=== PATIENT | male | born 1970 | race Caucasian/White ===

== ENCOUNTER → 2020-11-06 00:13 | Outpatient (CLI) | payer OTHER, SELFPAY ==
[2020-11-06 17:44] LABS: SARS-CoV-2 RNA PCR Negative
== END ==
PROVIDERS: PCP Family Medicine; Visit Provider Internal Medicine Gastroenterology
DX: Z01.812 Encounter for preprocedural laboratory examination (principal); Z20.822 Contact with and (suspected) exposure to COVID-19
CPT/HCPCS: C9803; U0003; U0005

== ENCOUNTER 2020-11-09 00:38 | Day surgery (SDC) | payer OTHER, SELFPAY ==
[2020-10-26 13:20] VITALS: BMI 33.2
[2020-11-09 06:46] VITALS: BP 129/88; PULSE 84; RESP 18; TEMP 36.2; O2SAT 97; BMI 34.0
[2020-11-09] MEDS: LACTATED RINGERS 1,000 ML 150 ML IV CONT (06:53)
--- NOTE | 2020-11-09 07:19 | WPDANESEPPF ---
Anes - Initial Pre Proc Eval Procedure: Operation Date: 11/09/20 08:00 Proposed Procedures p Esophagogastroduodenoscopy - Arturo Duval MD Date/Time: 11/09/20 07:19 Surgeon: Arturo Duval MD Pre Op Diagnosis: Dysphagia Patient Data Age: 49 Gender: M Height: 5 ft 10 in Weight: 107.5 kg Last Vital Signs Temp 97.2 F L 11/09/20 06:46 Pulse 84 11/09/20 06:46 Resp 18 11/09/20 06:46 BP 129/88 11/09/20 06:46 Pulse Ox 97 11/09/20 06:46 Allergies Allergy/AdvReac Type Severity Reaction Status Date / Time No Known Allergies Allergy Verified 11/09/20 06:43 Home Medications Medication Instructions Recorded Confirmed Type atorvastatin [Lipitor] 10 mg PO DAILY 10/26/20 10/26/20 History lisinopril [Zestril] 10 mg PO DAILY 10/26/20 10/26/20 History rizatriptan [Maxalt] 10 mg PO DAILY 10/26/20 10/26/20 History verapamil 120 mg PO DAILY 10/26/20 10/26/20 History zolpidem [Ambien] 10 mg PO DAILY 10/26/20 10/26/20 History esomeprazole magnesium 20 mg PO DAILY 11/09/20 11/09/20 History Patient hx anesthesia problems: none Family hx anesthesia problems: none PMFSH Past Medical History Medical History (Updated 11/09/20 @ 07:18 by Bola Regalado MD) Hyperlipidemia Hypertension Migraine Social History Social History Substance use type: does not use Living arrangements: with family Gender identity (if verbalized by the patient): Male Sexual Orientation (if Verbalized by the Patient): Straight or Heterosexual Spiritual care concerns: No Anes - Eval Final PreProcedure Day of Procedure 11/09/20 07:19 Patient weight: obese Heart: regular rate and rhythm Lungs: clear to auscultation Airway: Mallampati scale class II Neurological: alert and oriented Last oral intake: >/= 8 hours ASA classification: III Emergent: no Anesthetic plan: proceed Anesthesia type and monitoring: general GIVS and standard monitoring Informed Consent: The patient's anesthetic plan and its attendant risks and benefits were discussed with the patient/family/POA. Questions were solicited and answers provided to the satisfaction of the patient/family/POA.
--- NOTE | 2020-11-09 07:32 | PM.HPGS ---
History of Present Illness History of Present Illness Consent: Risks, benefits, and alternatives have been discussed and questions answered. Patient agrees to proceed with procedure. Chief complaint: Dysphagia Narrative: Bo Wade is a 49 year old male with gerd better with ppi but also dysphagia, never had egd Review of Systems Constitutional: Constitutional: Denies headache(s) and Denies weakness Eyes: Eyes: Denies blurry vision ENT: Reports Normal hearing present, Denies headache(s) and Denies neck pain Cardiovascular: Cardiovascular: Denies chest pain and Denies dyspnea Respiratory: Respiratory: Denies dyspnea Gastrointestinal: Gastrointestinal: Reports no additional gastrointestinal complaints Genitourinary: Genitourinary: Denies dysuria Musculoskeletal: Musculoskeletal: Denies neck pain Integumentary/Breasts: Skin/Breast: Denies dry skin Neurologic: Reports Normal hearing present, Denies headache(s) and Denies weakness Psychiatric: Psychiatric: Denies anxiety Endocrine: Endocrine: Denies change in body appearance Hematologic/Lymphatic: Hematologic/Lymphatic: Denies easy bleeding Allergic/Immunologic: Allergic/Immunologic: Denies urticaria PMF Past Medical History Medical History (Updated 11/09/20 @ 07:32 by Arturo Duval MD) Dysphagia GERD (gastroesophageal reflux disease) Hyperlipidemia Hypertension Migraine Social History Social History Substance use type: does not use Living arrangements: with family Gender identity (if verbalized by the patient): Male Sexual Orientation (if Verbalized by the Patient): Straight or Heterosexual Spiritual care concerns: No Meds Home Medications and Allergies Home Medications Medication Instructions Recorded Confirmed Type atorvastatin [Lipitor] 10 mg PO DAILY 10/26/20 10/26/20 History lisinopril [Zestril] 10 mg PO DAILY 10/26/20 10/26/20 History rizatriptan [Maxalt] 10 mg PO DAILY 10/26/20 10/26/20 History verapamil 120 mg PO DAILY 10/26/20 10/26/20 History zolpidem [Ambien] 10 mg PO DAILY 10/26/20 10/26/20 History esomeprazole magnesium 20 mg PO DAILY 11/09/20 11/09/20 History Allergies Allergy/AdvReac Type Severity Reaction Status Date / Time No Known Allergies Allergy Verified 11/09/20 06:43 Vital Signs Vital Signs - 24 hr 11/09/20 06:46 Temperature 97.2 F L Pulse Rate 84 Respiratory Rate 18 Blood Pressure 129/88 Pulse Oximetry 97 Exam Const: General: comfortable and no acute distress HENMT: General nose exam: Normal nares present Eyes: General: appearance normal, both eyes and all related structures Neck: Neck: no JVD Resp: Auscultation: clear to auscultation bilaterally Cardio: Rate: regular rate Rhythm: regular rhythm GI: Inspection: non-distended GI Palp: Yes Soft to palpation Skin: General skin exam: normal color Neuro: General: gait normal Speech: normal speech Extrem: General: normal to inspection Psych: Mental Status: mental status grossly normal Assessment and Plan Assessment and plan (1) GERD (gastroesophageal reflux disease): Code(s): K21.9 - Gastro-esophageal reflux disease without esophagitis Status: Acute Assessment and Plan: egd with bx, on ppi otc (2) Dysphagia: Code(s): R13.10 - Dysphagia, unspecified Status: Acute
[2020-11-09 07:43] VITALS: BP 125/77; PULSE 79; RESP 93; O2SAT 93
[2020-11-09 07:53] VITALS: BP 117/79; PULSE 81; RESP 96; O2SAT 96
[2020-11-09 08:03] VITALS: BP 132/85; PULSE 80; RESP 18; O2SAT 97
== END 2020-11-09 08:12 | disposition home or self-care (01) ==
PROVIDERS: PCP Family Medicine; Visit Provider Internal Medicine Gastroenterology
PROC: 0DJ08ZZ Inspection of Upper Intestinal Tract, Via Natural or Artificial Opening Endoscopic (ICD-10-PCS; CPT 43235; principal; 2020-11-09 08:00)
DX: R13.10 Dysphagia, unspecified (principal); K21.9 Gastro-esophageal reflux disease without esophagitis; I10 Essential (primary) hypertension; E78.5 Hyperlipidemia, unspecified; E66.9 Obesity, unspecified; Z68.34 Body mass index [BMI] 34.0-34.9, adult
CPT/HCPCS: 43239; 88305; C9803; J2704; J7120; U0003; U0005

== ENCOUNTER 2021-05-18 12:53 | Outpatient (RCR) | payer OTHER, SELFPAY ==
[2021-05-18] MEDS: diphenhydrAMINE HCl CAP 25 MG CAPSULE PO (14:06)
[2021-05-18] MEDS: ACETAMINOPHEN 325 MG TABLET 650 MG PO (14:06)
[2021-05-18] MEDS: FAMOTIDINE 20 MG TABLET PO (14:06)
[2021-05-18 14:26] VITALS: BP 127/88; PULSE 95; RESP 18; TEMP 37.2; O2SAT 97
--- NOTE | 2021-05-18 15:01 | PC.NURSE ---
Patient received COVID vaccines: [place] 10/13/20, 11/04/20
[2021-05-18 15:49] VITALS: BP 130/85; PULSE 93; RESP 18; TEMP 37; O2SAT 97
--- NOTE | 2021-05-19 10:13 | PC.NURSE ---
Called patient to follow-up regarding COVID antibody infusion yesterday. Patient states they are feeling well today and denies any side effects at this time.
== END 2021-05-18 16:24 | disposition home or self-care (01) ==
LOC: AMCINF 12:53
PROVIDERS: PCP Family Medicine; Referring Provider Family Medicine; Visit Provider Internal Medicine Hematology & Oncology
DX: Z23 Encounter for immunization (principal); U07.1 COVID-19
CPT/HCPCS: A9270; J7050; M0243; Q0244

== ENCOUNTER 2022-03-15 04:09 | Emergency (ER) | payer OTHER, SELFPAY ==
--- NOTE | ~2022-03-15 | CT_ITS ---
EXAMINATION: CT brain wo con DATE: 03/15/2022 06:00 INDICATION: New headache. TECHNIQUE: Computed tomography (CT) of the head was performed without intravenous contrast. The mA wa s adjusted according to patient size. Iterative reconstruction technique was employed. The dose-lengt h product was 605.33 mGy-cm. COMPARISON: Head CT 03/19/2019 FINDINGS: There is no intracranial hemorrhage, acute infarction, or abnormal intracranial mass lesion . The ventricles are normal in size. There is mild mucosal thickening in the paranasal sinuses. The o rbits are normal. The mastoid air cells are normal. IMPRESSION: 1. Normal brain. Reviewed, dictated and finalized at location A. IMPRESSION: 1. Normal brain.
[2022-03-15 04:12] VITALS: BP 140/104; PULSE 64; RESP 18; TEMP 36.6; O2SAT 98
--- NOTE | 2022-03-15 05:45 | ED.HA ---
HPI - Headache General Chief Complaint: Headache Stated Complaint: migraine x few days, nausea Time Seen by Provider: 03/15/22 05:31 History of Present Illness HPI Narrative: This is a 51-year-old male with past medical history of hypertension, migraines, who presents the emergency department with headache since 2 days ago. He states normally his migraines are pressure-like, over the right and right scalp, and improved with home medications. This headache is described as occipital, pressure-like, with sudden onset at 8 out of 10. He denies associated weakness/numbness, loss of vision, loss of hearing or vertigo. He states despite trying home medications the headache has persisted, [facility] He denies other fevers or chills or vomiting. Related Data Home Medications Medication Instructions Recorded Confirmed atorvastatin 10 mg tablet (Lipitor) 10 mg PO DAILY 10/26/20 05/18/21 lisinopril 10 mg tablet (Zestril) 10 mg PO DAILY 10/26/20 05/18/21 rizatriptan 10 mg tablet (Maxalt) 10 mg PO DAILY 10/26/20 05/18/21 verapamil 120 mg tablet,extended 120 mg PO DAILY 10/26/20 05/18/21 release esomeprazole magnesium 20 mg 20 mg PO DAILY 11/09/20 05/18/21 tablet,delayed release zolmitriptan 5 mg tablet mg 03/15/22 Allergies Allergy/AdvReac Type Severity Reaction Status Date / Time No Known Allergies Allergy Verified 03/15/22 04:16 Review of Systems Review of Systems: CONSTITUTIONAL: Denies fever, chills, or sweats. EYES: Denies visual changes, redness, or discharge. ENT: Denies rhinorrhea, congestion, sore throat, or otalgia. CARDIOVASCULAR: Denies chest pain, palpitations, or edema. RESPIRATORY: Denies cough or dyspnea. GASTROINTESTINAL: intermittent nausea, Denies abdominal pain, vomiting, or diarrhea. GENITOURINARY: Denies dysuria or hematuria. SKIN: Denies rash or itching. MUSCULOSKELETAL: Denies back pain, joint pain, or myalgia. NEUROLOGIC: headache different from prior migraines, Denies numbness, dizziness, or weakness. PSYCHIATRIC: Denies anxiety or depression. [facility] Past Medical History Medical History (Updated 03/15/22 @ 07:38 by Chad Sargent MD) Dysphagia GERD (gastroesophageal reflux disease) Hyperlipidemia Hypertension Migraine Social History Social History Smoking status: Never smoker Substance use type: does not use Gender identity (if verbalized by the patient): Male Sexual Orientation (if Verbalized by the Patient): Straight or Heterosexual Spiritual care concerns: No Exam Narrative: GENERAL: Well-appearing, well-nourished, and in no acute distress. Appears uncomfortable HEAD: Normocephalic, atraumatic. EYES: PERRLA and EOMI. no noted nystagmus ENT: Nares clear, no rhinorrhea or epistaxis. Mucous membranes moist. Oropharynx without tonsillar hypertrophy exudate or other lesions. NECK: Supple. No adenopathy or masses. No carotid bruits or JVD. Head impulse test negative CHEST: Clear to auscultation. No respiratory distress. No wheezes rales or rhonchi HEART: Regular rate and rhythm. No murmur heard. Normal peripheral pulses. ABDOMEN: Soft, nontender, nondistended, normal active bowel sounds. EXTREMITIES: Normal range of motion. No edema. SKIN: Warm, dry, no rash. NEURO: No focal deficits. Alert and oriented x3. Strength out of 5 in all extremities, sensation intact in all extremities, cranial nerves II through XII intact. No noted ataxia, gait normal PSYCH: Normal mood and affect. Course Course Emergency Course: 06:27 - CT head negative for acute intracranial abnormality and is unchanged from March 2019. Incidentally, the patient states he was scratched by a piece of rebar approximately 1 week ago. He does not know when his last tetanus vaccination was given. We will repeat here 07:37 - Reassessed. The patient states he is feeling better. Discussed return emergency precautions including signs/symptoms of intracranial hemorrhage and focal
--- NOTE | 2022-03-15 06:18 | PC.NURSE ---
This RN attempted x2 for IV access. NO success. 2nd RN to try
[2022-03-15] MEDS: PROCHLORPERAZINE EDISYLATE 10 MG/2 ML VIAL IV PUSH (06:39)
[2022-03-15] MEDS: SODIUM CHLORIDE 0.9% IV 1,000 ML 999 ML IV CONT (06:39)
[2022-03-15] MEDS: diphenhydrAMINE HCl INJ 50 MG/ML VIAL 25 MG IV PUSH (06:41)
[2022-03-15 06:58] VITALS: BP 151/100; PULSE 81; RESP 16; O2SAT 98
[2022-03-15 08:09] VITALS: BP 142/87; PULSE 80; RESP 20; O2SAT 98
[2022-03-15] MEDS: TETANUS,DIPHTHERIA,AC PERTUSSIS ADULT (0.5 ML) BOOSTRIX IM (08:10)
== END 2022-03-15 08:16 | disposition home or self-care (01) ==
PROVIDERS: Emergency Provider Preventive Medicine Aerospace Medicine; PCP Family Medicine
DX: G43.909 Migraine, unspecified, not intractable, without status migrainosus (principal); T14.8XXA Other injury of unspecified body region, initial encounter; Z23 Encounter for immunization; K21.9 Gastro-esophageal reflux disease without esophagitis; E78.5 Hyperlipidemia, unspecified; I10 Essential (primary) hypertension; W26.8XXA Contact with other sharp object(s), not elsewhere classified, initial encounter
CPT/HCPCS: 70450; 90471; 90715; 96361; 96365; 96375; 99284; J0131; J0780; J1200; J7030

== ENCOUNTER 2023-12-04 15:50 | Outpatient (CLI) | payer OTHER, SELFPAY ==
--- NOTE | ~2023-12-04 | XR_ITS ---
XR wrist RT 2V 12/04/2023 16:40 Indication: Joint pain Procedure: 2 views right breast Comparison: No prior studies for comparison. Findings: There is anatomic alignment. There is mild osteoarthritis of the first MCP joint. No fractu re, subluxation or dislocation. Lisfranc joint intact. No focal soft tissue abnormality. Normal home office claims examiner alization. No foreign bodies. Impression: 1: No significant bone or joint abnormality. Reviewed, dictated and finalized at location B. Impression: 1: No significant bone or joint abnormality.
--- NOTE | ~2023-12-04 | XR_ITS ---
XR foot RT 2V, XR ankle RT 2V 12/04/2023 16:40 Indication: Joint pain Procedure: 2 views right foot and 2 views right ankle Comparison: No prior studies for comparison. Findings: There is anatomic alignment. No fracture, subluxation or dislocation. Lisfranc joint intact . No focal soft tissue abnormality. Normal mineralization. No foreign bodies. Impression: 1: No significant bone or joint abnormality. Reviewed, dictated and finalized at location B. Impression: 1: No significant bone or joint abnormality. Impression: 1: No significant bone or joint abnormality.
--- NOTE | ~2023-12-04 | XR_ITS ---
XR hand LT 2V 12/04/2023 16:40 Indication: Left hand pain Procedure: 2 views left hand Comparison: No prior studies for comparison. Findings: There is mild polyarticular osteoarthritis of the interphalangeal joints and first MCP join t. No fracture or traumatic malalignment. No focal soft tissue abnormality. No foreign bodies. Impression: 1: Mild polyarticular osteoarthritis. Reviewed, dictated and finalized at location B. Impression: 1: Mild polyarticular osteoarthritis.
--- NOTE | ~2023-12-04 | XR_ITS ---
XR wrist LT 2V 12/04/2023 16:40 Indication: Joint pain Procedure: 2 views left wrist Comparison: No prior studies for comparison. Findings: There is anatomic alignment. No fracture, subluxation or dislocation. Lisfranc joint intact . No focal soft tissue abnormality. Normal mineralization. No foreign bodies. Impression: 1: No significant bone or joint abnormality. Reviewed, dictated and finalized at location B. Impression: 1: No significant bone or joint abnormality.
--- NOTE | ~2023-12-04 | XR_ITS ---
XR foot LT 2V 12/04/2023 16:40 Indication: Joint pain Procedure: 2 views left foot Comparison: No prior studies for comparison. Findings: There is anatomic alignment. No fracture, subluxation or dislocation. Lisfranc joint intact . No focal soft tissue abnormality. Normal mineralization. No foreign bodies. Impression: 1: No significant bone or joint abnormality. Reviewed, dictated and finalized at location B. Impression: 1: No significant bone or joint abnormality.
--- NOTE | ~2023-12-04 | XR_ITS ---
XR hand RT 2V 12/04/2023 16:40 Indication: Joint pain Procedure: 2 views right hand Comparison: No prior studies for comparison. Findings: Mild polyarticular osteoarthritis of the interphalangeal joints and the first MCP joint. No fracture, subluxation or dislocation. No focal soft tissue abnormality. No foreign bodies. Impression: 1: Mild polyarticular osteoarthritis. Reviewed, dictated and finalized at location B. Impression: 1: Mild polyarticular osteoarthritis.
--- NOTE | ~2023-12-04 | XR_ITS ---
XR ankle LT 2V 12/04/2023 16:40 INDICATION: Left ankle pain PROCEDURE: 4 views left ankle COMPARISON: No prior studies for comparison. FINDINGS: Fracture, dislocation or subluxation is not identified. The soft tissues appear within norm al limits. No foreign bodies are identified. IMPRESSION: 1: NO ACUTE BONE OR JOINT ABNORMALITY IDENTIFIED. Reviewed, dictated and finalized at location B.
== END 2023-12-04 15:51 ==
PROVIDERS: PCP Internal Medicine; Visit Provider Internal Medicine
DX: M19.042 Primary osteoarthritis, left hand (principal); M19.041 Primary osteoarthritis, right hand; R53.81 Other malaise
CPT/HCPCS: 73100; 73120; 73600; 73620

== ENCOUNTER 2024-01-10 09:06 | Outpatient (NON) | payer OTHER, SELFPAY | END 2024-01-10 09:07 | disposition home or self-care (01) | LOC: ANHLAB 01-11 09:08 | PROVIDERS: PCP Family Medicine; Visit Provider Internal Medicine Gastroenterology | DX: K63.5 Polyp of colon (principal); K62.1 Rectal polyp; Z86.010 Personal history of colon polyps | CPT/HCPCS: 88305 ==

== ENCOUNTER 2024-01-10 10:05 | Day surgery (SDC) | payer OTHER, SELFPAY ==
[2023-12-27 10:36] VITALS: BMI 33.0
[2023-12-27 14:15] VITALS: BMI 32.5
--- NOTE | 2024-01-09 14:09 | P.PNAN_ITS ---
Anes - Initial Pre Proc Eval Procedure: Operation Date: 01/10/24 12:30 Proposed Procedures p Diagnostic Colonoscopy - Ronal Roberson MD Date/Time: 01/09/24 14:09 Surgeon: Ronal Roberson MD Pre Op Diagnosis: History of Colon Polyps Patient Data Age: 53 Gender: M Height: 1.75 m Weight: 100 kg Allergies Allergy/AdvReac Type Severity Reaction Status Date / Time No Known Allergies Allergy Verified 01/10/24 11:23 Home Medications Medication Instructions Recorded Confirmed Type zolmitriptan 5 mg tablet See Rx Instructions .Route 10/31/23 01/10/24 Rx .COMPLEX #3 tabs atorvastatin 10 mg tablet (Lipitor) 10 mg PO DAILY #90 tabs 12/25/23 01/10/24 Rx esomeprazole magnesium 20 mg 20 mg PO DAILY #90 tabs 12/25/23 01/10/24 Rx tablet,delayed release finasteride 5 mg tablet 5 mg PO DAILY 12/25/23 01/10/24 History lisinopril 10 mg tablet (Zestril) 10 mg PO DAILY #90 tabs 12/25/23 01/10/24 Rx testosterone cypionate 100 mg/mL 50 mg IM .twice a week 12/25/23 01/10/24 History intramuscular oil (Depo-Testosterone) verapamil 120 mg tablet,extended 120 mg PO DAILY #90 tabs 12/25/23 01/10/24 Rx release Patient hx anesthesia problems: none Family hx anesthesia problems: none Results Review: All pre-operative results and documents have been reviewed as part of the pre- operative evaluation. [facility] Past Medical History Medical History Dysphagia Episodic cluster headache, not intractable GERD (gastroesophageal reflux disease) Hyperlipidemia Hypertension Migraine Personal history of colonic polyps Prediabetes Social History Social History (Updated 12/25/23 @ 13:53 by Amanda Villela MA) Smoking status: Never smoker Alcohol intake: current Alcohol use details: occasional Substance use type: does not use Do You Feel Safe in your Home?: Yes Lack of Transportation: No Lack of Food: Never True Current Housing: I Have Housing Concerned About Future Housing: No Difficulty Paying Gas/Electric Bills: No Difficulty Paying for Meds: No Currently Unemployed: No Education: High School Diploma/GED Difficulty w/ Childcare or Family Care: No Living arrangements: with family Occupation/Education: occupation Gender identity (if verbalized by the patient): Male Sexual Orientation (if Verbalized by the Patient): Straight or Heterosexual Spiritual care concerns: No Anes - Eval Final PreProcedure Day of Procedure 01/09/24 14:09 Patient weight: obese Heart: regular rate and rhythm Lungs: clear to auscultation Airway: Mallampati scale class II Neurological: alert and oriented Last oral intake: >/= 8 hours ASA classification: III Emergent: no Anesthetic plan: proceed Anesthesia type and monitoring: general GIVS and standard monitoring Results Review: All pre-operative results and documents have been reviewed as part of the pre- operative evaluation. Informed Consent: The patient's anesthetic plan and its attendant risks and benefits were discussed with the patient/family/POA. Questions were solicited and answers provided to the satisfaction of the patient/family/POA.
[2024-01-10 11:29] VITALS: BP 125/92; PULSE 84; RESP 18; TEMP 36.8; O2SAT 97
[2024-01-10 11:31] VITALS: BMI 32.1
[2024-01-10] MEDS: LACTATED RINGERS 1,000 ML 150 ML IV CONT (11:41)
--- NOTE | 2024-01-10 11:52 | PM.HPGS ---
History of Present Illness History of Present Illness Consent: Risks, benefits, and alternatives have been discussed and questions answered. Patient agrees to proceed with procedure. Chief complaint: History of Colon Polyps Narrative: Bo Wade is a 53 year old male presents for screening colonoscopy. Patient's current weight appetite and bowel movements are normal. He denies abdominal pain. Patient has had no bleeding. Family history noncontributory. Patient does have a prior history of colon polyps in the past. There is no family history of colon polyps. Review of Systems Review of Systems: All systems reviewed & are unremarkable except as noted in HPI and below PMFSH Past Medical History Medical History Dysphagia Episodic cluster headache, not intractable GERD (gastroesophageal reflux disease) Hyperlipidemia Hypertension Migraine Personal history of colonic polyps Prediabetes Social History Social History (Updated 12/25/23 @ 13:53 by Amanda Villela MA) Smoking status: Never smoker Alcohol intake: current Alcohol use details: occasional Substance use type: does not use Do You Feel Safe in your Home?: Yes Lack of Transportation: No Lack of Food: Never True Current Housing: I Have Housing Concerned About Future Housing: No Difficulty Paying Gas/Electric Bills: No Difficulty Paying for Meds: No Currently Unemployed: No Education: High School Diploma/GED Difficulty w/ Childcare or Family Care: No Living arrangements: with family Occupation/Education: occupation Gender identity (if verbalized by the patient): Male Sexual Orientation (if Verbalized by the Patient): Straight or Heterosexual Spiritual care concerns: No Meds Home Medications and Allergies Home Medications Medication Instructions Recorded Confirmed Type zolmitriptan 5 mg tablet See Rx Instructions .Route 10/31/23 01/10/24 Rx .COMPLEX #3 tabs atorvastatin 10 mg tablet (Lipitor) 10 mg PO DAILY #90 tabs 12/25/23 01/10/24 Rx esomeprazole magnesium 20 mg 20 mg PO DAILY #90 tabs 12/25/23 01/10/24 Rx tablet,delayed release finasteride 5 mg tablet 5 mg PO DAILY 12/25/23 01/10/24 History lisinopril 10 mg tablet (Zestril) 10 mg PO DAILY #90 tabs 12/25/23 01/10/24 Rx testosterone cypionate 100 mg/mL 50 mg IM .twice a week 12/25/23 01/10/24 History intramuscular oil (Depo-Testosterone) verapamil 120 mg tablet,extended 120 mg PO DAILY #90 tabs 12/25/23 01/10/24 Rx release Allergies Allergy/AdvReac Type Severity Reaction Status Date / Time No Known Allergies Allergy Verified 01/10/24 11:23 Vital Signs Vital Signs - 24 hr 01/10/24 11:29 Temperature 98.2 F Pulse Rate 84 Respiratory Rate 18 Blood Pressure 125/92 H Pulse Oximetry 97 Oxygen Delivery Room Air Exam Narrative: Physical exam reveals patient to be alert. Vital signs stable. HEENT exam is unremarkable. Patient is anicteric. S are clear to auscultation and percussion. Heart is without murmur or extra sounds. Abdomen bowel sounds are present soft nontender with no organomegaly. Digital external rectal exam normal. Assessment and Plan Assessment and plan (1) Personal history of colonic polyps: Code(s): Z86.010 - Personal history of colonic polyps Status: Acute Assessment and Plan: His. Plan for surveillance colonoscopy now, and consider this at 5 year intervals.
[2024-01-10 12:46] VITALS: BP 103/67; PULSE 83; RESP 17; O2SAT 94
[2024-01-10 12:56] VITALS: BP 122/89; PULSE 75; RESP 18; O2SAT 95
--- NOTE | 2024-01-10 12:57 | WPDANESPN ---
Anes - Prog Note Post-Op Date/Time: 01/10/24 12:57 Cardiovascular status: normal Respiratory status: normal Airway patency: baseline Mental status: baseline Post-Op hydration status: normal Vital Signs: Last Vital Signs Temp 36.8 C 01/10/24 11:29 Pulse 83 01/10/24 12:46 Resp 17 01/10/24 12:46 BP 103/67 01/10/24 12:46 Pulse Ox 94 01/10/24 12:46 O2 Del Method Room Air 01/10/24 12:46 Pain Score (VAS): 0 I/O: Intake & Output 01/09/24 01/10/24 01/10/24 23:59 07:59 15:59 Intake Total 700 Balance 700 Post-procedural complaints: none Patient Feedback: Patient satisfied with anesthetic care. Other Findings: Patient vital signs back to baseline. Patient denies nausea and vomiting. Patient's pain under control. Patient OK for discharge.
[2024-01-10 13:06] VITALS: BP 119/92; PULSE 70; RESP 18; O2SAT 99
== END 2024-01-10 13:18 | disposition home or self-care (01) ==
PROVIDERS: PCP Family Medicine; Visit Provider Internal Medicine Gastroenterology
PROC: 0DJD8ZZ Inspection of Lower Intestinal Tract, Via Natural or Artificial Opening Endoscopic (ICD-10-PCS; CPT 45378; principal; 2024-01-10 12:30)
DX: Z86.010 Personal history of colon polyps (principal); D12.3 Benign neoplasm of transverse colon; D12.8 Benign neoplasm of rectum
CPT/HCPCS: 45385

== ENCOUNTER 2024-05-04 23:02 | Emergency (ER) | payer OTHER, SELFPAY ==
--- NOTE | ~2024-05-04 | CT_ITS ---
EXAMINATION: CT abdomen pelvis wo con DATE: 05/05/2024 03:48 INDICATION: Left flank pain. TECHNIQUE: Computed tomography (CT) of the abdomen and pelvis was performed without intravenous contr ast. Automated exposure control and iterative reconstruction technique were employed. The dose-length product was 876.89 mGy-cm. COMPARISON: CT abdomen and pelvis 10/14/2015 FINDINGS: The visualized portions of the lung bases demonstrate mild atelectasis. No pleural effusion . The heart size is normal. No pericardial effusion. The liver and spleen are normal. There are barragan es of cholecystectomy. The pancreas, adrenal glands, and right kidney are normal. Left kidney is in t he pelvis as a developmental variant. There is a 1 mm stone in left kidney. There is mild left hydron ephrosis and hydroureter. There is a 2 mm stone at left ureterovesicular junction. The prostate is mi ldly enlarged. There are no dilated loops of bowel. The appendix is not visualized. There are no path ologically enlarged lymph nodes. There is no free intraperitoneal fluid. There is severe lower lumbar spondylosis. IMPRESSION: 1. 2 mm stone at left ureterovesicular junction with mild left hydronephrosis and hydroureter. 2. 1 mm nonobstructing left kidney stone. Reviewed, dictated and finalized at location A. IMPRESSION: 1. 2 mm stone at left ureterovesicular junction with mild left hydronephrosis a nd hydroureter. 2. 1 mm nonobstructing left kidney stone.
[2024-05-04 23:28] VITALS: BP 151/91; PULSE 76; RESP 20; TEMP 36.5; O2SAT 100
[2024-05-05 02:16] VITALS: BP 148/83; PULSE 93; RESP 18; O2SAT 98
[2024-05-05 02:28] LABS: Basophils Percent Auto 0.2 % (0.2-1.2); Eosinophils Percent Auto 0.1 % (0-4.4); Hematocrit 53.4 % (42.0-52.0); Immature Granulocyte Absolute 0.05 K/mm3 (0.00-0.031); Immature Granulocyte Percent A 0.4 % (0-0.5); Lymphocytes Absolute Auto 0.78 K/mm3 (0.9-3.2); Lymphocytes Percent Auto 5.9 % (18.3-44.2); Mean Corpuscular HGB Conc 33.7 g/dl (32-36); Mean Corpuscular Hemoglobin 31.9 pg (26-34); Mean Corpuscular Volume 94.5 fl (80-100); Mean Platelet Volume 9.4 fl (7.4-10.4); Monocytes Absolute Auto 0.4 K/mm3 (0.1-0.6); Monocytes Percent Auto 2.9 % (2.6-8.5); Neutrophils Percent Auto 90.5 % (45.5-73.1); Platelet Count Result 181 k/mm3 (150-375); Red Blood Count 5.65 M/mm3 (4.6-6.20); Red Cell Distribution Width 12.9 % (11.5-14.5); White Blood Count 13.3 K/mm3 (4.5-10.0)
[2024-05-05 02:33] LABS: Add Urine Microscopic? YES; Appearance Urine Clear (Clear); Bacteria Urine None Seen /hpf; Bilirubin Urine Negative (Negative); Blood Urine 3+ (Negative); Color Urine Dark Yellow (Yellow); Glucose Urine UA Negative (Negative); Ketones Urine Trace mg/dL (Negative); Leukocyte Esterase Ur Negative LEU/UL (Negative); Nitrate Urine Negative (Negative); Non Pathogenic Casts 0-2; Protein Urine 1+ mg/dL (Negative); RBC Urine 51-100 /hpf (0-2); Specific Grav Ur 1.024 (1.001-1.035); Squamous Epithelial Cell Urine None Seen /hpf (Few); pH Urine 5.5 (5.0-9.0)
[2024-05-05 02:43] LABS: Alanine Aminotransferase 26 U/L (6-50); Albumin Level 4.8 g/dL (3.5-5.1); Alkaline Phosphatase 103 U/L (38-126); Anion Gap 9 mmol/L (4-12); Aspartate Amino Transferase 27 U/L (17-59); Bilirubin,Total 0.8 mg/dL (0.2-1.3); Blood Urea Nitrogen 12 mg/dL (9-20); Calcium 9.6 mg/dL (8.4-10.2); Carbon Dioxide 34 mmol/L (22-30); Chloride 98 mmol/L (98-107); Estimated CRCL calculation 82 ml/min; Estimated Glomerular Filt Rate > 60; Glucose 145 mg/dL (65-110); Potassium 4.3 mmol/L (3.4-5.0); Sodium 141 mmol/L (137-145)
[2024-05-05] MEDS: SODIUM CHLORIDE 0.9% IV 1,000 ML 999 ML IV CONT (03:31)
[2024-05-05] MEDS: ONDANSETRON INJ 4 MG/2 ML VIAL IV PUSH (03:32)
[2024-05-05] MEDS: MORPHINE SULFATE (*CRX) 4 MG/ML INJ IV PUSH ×2 (03:32→06:12)
--- NOTE | 2024-05-05 05:33 | ED.GENADULT ---
HPI - General Adult General Chief complaint: Urogenital-Male Stated complaint: Kidney stone?Left Time Seen by Provider: 05/05/24 03:12 History of Present Illness HPI narrative: Patient is a 53-year-old gentleman presents emergency department with chief complaint of left flank and kidney pain patient reports pain started around 4 hours ago patient reports he has prior history of kidney stones the patient reports that it feels similar to where recent stones in the past. Related Data Home Medications Medication Instructions Recorded Confirmed finasteride 5 mg tablet 5 mg PO DAILY 12/25/23 01/10/24 testosterone cypionate 100 mg/mL 50 mg IM .twice a week 12/25/23 01/10/24 intramuscular oil (Depo-Testosterone) Allergies Allergy/AdvReac Type Severity Reaction Status Date / Time No Known Allergies Allergy Verified 05/04/24 23:30 Review of Systems Review of Systems: A 10 system review of systems was completed on the patient and is negative except for what is stated in the HPI. Nursing and ancillary documentation was reviewed. [facility] Past Medical History Medical History Dysphagia Episodic cluster headache, not intractable GERD (gastroesophageal reflux disease) Hyperlipidemia Hypertension Migraine Personal history of colonic polyps Prediabetes Social History Social History Smoking status: Never smoker Alcohol intake: current Alcohol use details: occasional Substance use type: does not use Do You Feel Safe in your Home?: Yes Lack of Transportation: No Lack of Food: Never True Current Housing: I Have Housing Concerned About Future Housing: No Difficulty Paying Gas/Electric Bills: No Difficulty Paying for Meds: No Currently Unemployed: No Education: High School Diploma/GED Difficulty w/ Childcare or Family Care: No Living arrangements: with family Occupation/Education: occupation Gender identity (if verbalized by the patient): Male Sexual Orientation (if Verbalized by the Patient): Straight or Heterosexual Spiritual care concerns: No Exam Narrative: GENERAL: Well-appearing, well-nourished, and in no acute distress. HEAD: Normocephalic, atraumatic. EYES: PERRLA and EOMI. ENT: Nares clear, no rhinorrhea or epistaxis. Mucous membranes moist. NECK: Supple. CHEST: Clear to auscultation. No respiratory distress. HEART: Regular rate and rhythm. No murmur heard. Normal peripheral pulses. ABDOMEN: Soft, nontender, nondistended, normal active bowel sounds. EXTREMITIES: Normal range of motion. No edema. SKIN: Warm, dry, no rash. NEURO: No focal deficits. Alert and oriented x3. PSYCH: Normal mood and affect. Course Vital Signs Vital signs: Vital Signs Temperature 36.5 C 05/04/24 23:28 Pulse Rate 76 05/04/24 23:28 Respiratory Rate 20 05/04/24 23:28 Blood Pressure 151/91 H 05/04/24 23:28 Pulse Oximetry 100 05/04/24 23:28 Oxygen Delivery Room Air 05/04/24 23:28 Temperature 36.5 C 05/04/24 23:28 Pulse Rate 74 05/05/24 05:40 Respiratory Rate 18 05/05/24 05:40 Blood Pressure 136/93 H 05/05/24 05:40 Pulse Oximetry 98 05/05/24 05:40 Oxygen Delivery Room Air 05/04/24 23:28 Medical Decision Making [facility] Narrative Medical decision making narrative: Differential diagnosis includes UTI, pyelonephritis, ureterolithiasis CT scan showed a 1 mm obstructing stone at the left UVJ The patient's pain was controlled in the ER laboratory studies were obtained showed a white count of 13.3 electrolytes showed a creatinine 1.1 urinalysis showed 50-100 red blood cells and 6-10 white blood cells. The patient will be started on Keflex and also given a prescription for [place] Zofran and Flomax Vital Signs Vital Signs: Vital Signs Temperature 36.5 C 05/04/24 23:28 Pulse Rate 76 05/04/24 23:28 Respirat
[2024-05-05 05:40] VITALS: BP 136/93; PULSE 74; RESP 18; O2SAT 98
[2024-05-05 06:55] VITALS: BP 147/83; PULSE 94; RESP 18; O2SAT 95
[2024-05-05] MEDS: oxyCODONE/ACETAMINOPHEN (*CRX) 5-325 MG TABLET 1 TABLET PO (07:03)
[2024-05-05] MEDS: CEPHALEXIN 500 MG CAPSULE PO (07:03)
[2024-05-05] MEDS: TAMSULOSIN HCL 0.4 MG CAPSULE PO (07:04)
== END 2024-05-05 07:09 | disposition home or self-care (01) ==
PROVIDERS: Emergency Provider Emergency Medicine; PCP Family Medicine
DX: N13.2 Hydronephrosis with renal and ureteral calculous obstruction (principal); E78.5 Hyperlipidemia, unspecified; I10 Essential (primary) hypertension; K21.9 Gastro-esophageal reflux disease without esophagitis; R73.03 Prediabetes; Z86.010 Personal history of colon polyps
CPT/HCPCS: 36415; 74176; 80053; 81001; 85025; 87086; 96361; 96374; 96375; 96376; 99284; A9270; J2270; J2405; J7030